=== PATIENT | male | born 1975 | race Two or more races ===

== ENCOUNTER 2018-08-10 12:04 | Emergency (ER) | payer SELFPAY ==
[~2018-08-10] VITALS: Ht 167.6 cm; Wt 78.5 kg
[2018-08-10 12:18] VITALS: Ht 167.6 cm; Wt 78.5 kg
[2018-08-10 13:24] VITALS: BP 115/75
== END 2018-08-10 13:24 | disposition home or self-care (01) ==
LOC: ED 12:04
DX: S56.911A Strain of unspecified muscles, fascia and tendons at forearm level, right arm, initial encounter (principal); X50.1XXA Overexertion from prolonged static or awkward postures, initial encounter; Y93.89 Activity, other specified; Y92.89 Other specified places as the place of occurrence of the external cause; Y99.0 Civilian activity done for income or pay
CPT/HCPCS: J1885

== ENCOUNTER 2019-02-05 18:54 | Emergency (ER) | payer MEDICAID ==
[~2019-02-05] VITALS: Ht 167.6 cm; Wt 81.6 kg
[2019-02-05 19:10] VITALS: Ht 167.6 cm; Wt 81.6 kg
[2019-02-05 23:40] VITALS: BP 108/62
== END 2019-02-05 23:40 | disposition home or self-care (01) ==
LOC: ED 18:54
DX: T63.441A Toxic effect of venom of bees, accidental (unintentional), initial encounter (principal); T78.2XXA Anaphylactic shock, unspecified, initial encounter; X58.XXXA Exposure to other specified factors, initial encounter
CPT/HCPCS: J0171; J1200; J2930; J3490; J7030; J7613; J7644